=== PATIENT | male | born 1990 | race African-American/Black ===

== ENCOUNTER → 2017-02-14 | Outpatient (CLI) | payer OTHER ==
--- NOTE | 2017-02-15 01:57 | REP ---
Clinical: Trauma. Technique: AP, lateral, bilateral oblique views right second digit . Findings: The osseous structures and joint spaces are intact and normal. There is no evidence for acute fracture or dislocation. Surrounding soft tissues are unremarkable. No subcutaneous emphysema or radiodense foreign body. Impression: Normal examination. No acute fracture or dislocation. Signed by Cristopher Barrett MD 02/15/2017 01:49 A
--- NOTE | 2017-02-15 02:37 | REP ---
Clinical: Trauma. Technique: AP, lateral, bilateral oblique views right hand . Findings: The osseous structures and joint spaces are intact and normal. There is no evidence for acute fracture or dislocation. Surrounding soft tissues are unremarkable. No subcutaneous emphysema or radiodense foreign body. Impression: Normal examination. No acute fracture or dislocation. Signed by Cristopher Barrett MD 02/15/2017 02:29 A
== END ==
LOC: M RAD 09:45
PROVIDERS: ATTEND Surgery
DX: M79.644 Pain in right finger(s) (principal)